=== PATIENT | male | born 1970 | race Caucasian/White ===

== ENCOUNTER 2018-09-01 12:57 | Day surgery (SDC) | payer MEDICARE ==
[2018-09-01] MEDS ORDERED: Ketamine HCl 50 MG/ML IJ ONE (12:58)
[2018-09-01] MEDS ORDERED: Sodium Chloride 0.9(Preservative Free) 10 ML IJ ONE (12:58)
[2018-09-01] MEDS ORDERED: DIPRIVAN 200 MG/20 ML IV ONE (12:58)
[2018-09-01] MEDS ORDERED: Depo-Medrol 40 MG/ML IM ONE (12:58)
[2018-09-01] MEDS ORDERED: Lactated Ringers 1,000 ML IV ONE (14:58)
--- NOTE | 2018-09-01 16:24 | XRAY ---
40 seconds of fluoroscopy was used in surgery for L1-L2 transforaminal JASMINA.
--- NOTE | 2018-09-01 16:24 | XRAY ---
Indication: Left L2-L3 transforaminal JASMINA. Intraoperative fluoroscopy was provided for 40 seconds. 2 digital spot images submitted for interpretation demonstrates posterior needle tip projecting over the expected course of the left L1 nerve root. Correlate with intraoperative findings/report.
== END 2018-09-01 14:56 | disposition home or self-care (01) ==
LOC: SDC-PAIN 12:57
PROVIDERS: ATTEND Psychiatry & Neurology Pain Medicine
DX: M54.16 Radiculopathy, lumbar region (principal); I10 Essential (primary) hypertension; E66.9 Obesity, unspecified; F41.9 Anxiety disorder, unspecified; F32.9 Major depressive disorder, single episode, unspecified; Z79.899 Other long term (current) drug therapy
CPT/HCPCS: 64493; 72100; 77003; J1030; J2704; Q9966

== ENCOUNTER 2018-12-22 11:38 | Day surgery (SDC) | payer MEDICARE ==
[2018-12-22] MEDS ORDERED: Depo-Medrol 40 MG/ML IM ONE (11:39)
[2018-12-22] MEDS ORDERED: Xylocaine 1% Vial 30 ML PF IJ ONE (11:39)
[2018-12-22] MEDS ORDERED: Sodium Chloride 0.9(Preservative Free) 10 ML IJ ONE (11:39)
[2018-12-22] MEDS ORDERED: Zofran 4 MG/2 ML VIAL ONE (12:29)
[2018-12-22] MEDS ORDERED: VERSED 5 MG/5 ML ONE (12:30)
[2018-12-22] MEDS ORDERED: DIPRIVAN 200 MG/20 ML IV ONE (13:09)
[2018-12-22] MEDS ORDERED: Ketamine HCl 50 MG/ML ONE (13:09)
--- NOTE | 2018-12-22 13:44 | XRAY ---
Indication: Lumbar JASMINA. Intraoperative fluoroscopy was provided for 17 seconds. 2 digital spot images submitted for interpretation demonstrates midline needle tip just posterior to the last lumbar segment. Correlate with intraoperative findings/report.
--- NOTE | 2018-12-22 13:46 | XRAY ---
17 seconds of fluoroscopy was used in surgery for a lumbar JASMINA.
[2018-12-22] MEDS ORDERED: Lactated Ringers 1,000 ML IV ONE (14:21)
== END 2018-12-22 13:35 | disposition home or self-care (01) ==
LOC: SDC-PAIN 11:38
PROVIDERS: ATTEND Psychiatry & Neurology Pain Medicine
DX: M54.16 Radiculopathy, lumbar region (principal); I10 Essential (primary) hypertension; F41.8 Other specified anxiety disorders; Z79.899 Other long term (current) drug therapy
CPT/HCPCS: 62323; 72100; 77003; J1030; J2001; J2250; J2405; J2704; Q9966

== ENCOUNTER 2019-06-08 09:48 | Day surgery (SDC) | payer MEDICARE ==
[2019-06-08] MEDS ORDERED: Depo-Medrol 40 MG/ML IM ONE (09:49)
[2019-06-08] MEDS ORDERED: Xylocaine 1% Vial 30 ML PF IJ ONE (09:49)
[2019-06-08] MEDS ORDERED: Sodium Chloride 0.9% 10 ML FLUSH Syringe IJ ONE (09:49)
[2019-06-08] MEDS ORDERED: DIPRIVAN 200 MG/20 ML IV ONE (10:30)
[2019-06-08] MEDS ORDERED: Ketamine HCl 50 MG/ML ONE (10:30)
--- NOTE | 2019-06-08 11:55 | XRAY ---
Indication: Lumbar JASMINA. Intraoperative fluoroscopy was provided for 14 seconds. 2 digital spot images submitted for interpretation demonstrate midline posterior needle tip projecting just posterior to the lumbosacral junction interspace. Small amount of contrast injected for needle tip placement. Correlate with intraoperative findings/report.
--- NOTE | 2019-06-08 11:58 | XRAY ---
14 seconds fluoroscopy time in surgery for lumbar JASMINA.
[2019-06-08] MEDS ORDERED: Lactated Ringers 1,000 ML IV ONE (13:10)
== END 2019-06-08 11:10 | disposition home or self-care (01) ==
LOC: SDC-PAIN 09:48
PROVIDERS: ATTEND Psychiatry & Neurology Pain Medicine
DX: M54.16 Radiculopathy, lumbar region (principal); I10 Essential (primary) hypertension; F41.8 Other specified anxiety disorders; Z79.899 Other long term (current) drug therapy
CPT/HCPCS: 62323; 72100; 77003; J1030; J2001; J2704; Q9966

== ENCOUNTER 2020-02-15 10:52 | Day surgery (SDC) | payer MEDICARE ==
[~2020-02-15 10:52] MED LIST: DIPRIVAN 200 MG/20 ML IV ONE; Ketamine HCl 50 MG/ML ONE
[2020-02-15] MEDS ORDERED: Xylocaine 1% Vial 30 ML PF IJ ONE (10:53)
[2020-02-15] MEDS ORDERED: Depo-Medrol 40 MG/ML IM ONE (10:53)
[2020-02-15] MEDS ORDERED: Sodium Chloride 0.9(Preservative Free) 10 ML IJ ONE (10:53)
--- NOTE | 2020-02-15 14:11 | XRAY ---
Indication: Lumbar JASMINA. Intraoperative fluoroscopy was provided for 28 seconds. 2 digital spot images submitted for interpretation demonstrates midline posterior needle tip projecting just posterior to the lumbosacral interspace. Correlate with intraoperative findings/report.
[2020-02-15] MEDS ORDERED: Lactated Ringers 1,000 ML IV ONE (15:59)
--- NOTE | 2020-02-15 16:27 | XRAY ---
28 seconds fluoroscopy time in surgery for lumbar JASMINA.
== END 2020-02-15 14:10 | disposition home or self-care (01) ==
LOC: SDC-PAIN 10:52
PROVIDERS: ATTEND Psychiatry & Neurology Pain Medicine
DX: M54.16 Radiculopathy, lumbar region (principal); I10 Essential (primary) hypertension; F41.8 Other specified anxiety disorders; Z79.899 Other long term (current) drug therapy
CPT/HCPCS: 62323; 72100; 77003; J1030; J2001; J2704; Q9966